=== PATIENT | female | born 1945 | race Caucasian/White ===

== ENCOUNTER 2022-08-10 14:41 | Inpatient (IN) | payer OTHER ==
[~2022-08-10] VITALS: Ht 157.5 cm; Wt 54.0 kg
--- NOTE | 2022-08-10 14:54 | NUR ---
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 TO ER BED 8.
[2022-08-10] MEDS ORDERED: ONDANSETRON HCL/PF 4 MG/2 ML VIAL ONE (15:08)
[2022-08-10] MEDS ORDERED: methylPREDNISolone SOD SUCC 125 MG/2ML VIAL ONE (15:08)
[2022-08-10] MEDS ORDERED: IPRATROPIUM NEB FS 0.5 MG/2.5 ML AMPUL.NEB ONE (15:17)
[2022-08-10] MEDS ORDERED: ALBUTEROL FS 2.5 MG/3 ML VIAL.NEB ONE (15:17)
--- NOTE | 2022-08-10 15:19 | NUR ---
TECH AT BEDSIDE FOR EKG
--- NOTE | 2022-08-10 15:20 | NUR ---
PHLEB AT BEDSIDE FOR BLOOD DRAW.
--- NOTE | 2022-08-10 15:20 | NUR ---
RT CALLED FOR BREATHING TX; CURRENTLY AT BEDSIDE.
[2022-08-10] MEDS ORDERED: ALBUTEROL FS 2.5 MG/3 ML VIAL.NEB NEB ONE (15:30)
[2022-08-10] MEDS ORDERED: ONDANSETRON HCL/PF 4 MG/2 ML VIAL IVP ONE (15:30)
[2022-08-10] MEDS ORDERED: methylPREDNISolone SOD SUCC 125 MG/2ML VIAL IV ONE (15:30)
[2022-08-10] MEDS ORDERED: IPRATROPIUM NEB FS 0.5 MG/2.5 ML AMPUL.NEB NEB ONE (15:30)
[2022-08-10 15:40] LABS: BASOPHILS # (AUTO) 0.1 K/uL (0.0-0.2); BASOPHILS % (AUTO) 0.6 % (0.0-2.0); EOSINOPHILS % (AUTO) 1.5 % (0.0-6.0); HEMATOCRIT 38 % (33-45); HEMOGLOBIN 12.6 g/dL (11.5-14.8); LYMPHOCYTES # (AUTO) 1.7 K/uL (0.8-4.8); LYMPHOCYTES % (AUTO) 12.9 % (20.0-44.0); MEAN CORPUSCULAR HGB CONC 33 g/dl (31.0-36.0); MEAN CORPUSCULAR VOLUME 95 fL (82-100); MONOCYTES # (AUTO) 0.9 K/uL (0.1-1.30); MONOCYTES % (AUTO) 7.4 % (2.0-12.0); NEUTROPHILS # (AUTO) 9.9 K/uL (1.8-8.9); NEUTROPHILS % (AUTO) 77.6 % (43.0-81.0); PLATELET COUNT (AUTO) 319 K/uL (150-450); RED BLOOD CELL COUNT(AUTO) 4.05 MIL/uL (4.0-5.2); WHITE BLOOD COUNT (AUTO) 12.8 K/uL (4.3-11.0)
[2022-08-10 15:58] LABS: CALCIUM, SERUM 9.2 mg/dL (8.5-10.1); CARBON DIOXIDE 33 mmol/L (21-32); CHLORIDE 96 mmol/L (98-107); CREATININE 0.8 mg/dL (0.6-1.3); GLUCOSE 139 mg/dL (74-106); POTASSIUM 3.8 mmol/L (3.5-5.1); SODIUM SERUM 132 mmol/L (136-145); UREA NITROGEN, BLOOD 15 mg/dL (7-18)
[2022-08-10 16:11] LABS: ALANINE AMINOTRANSFERASE 8 U/L (12-78); ALBUMIN 2.9 g/dL (3.4-5.0); ALKALINE PHOSPHATASE 102 U/L (46-116); ASPARTATE AMINOTRANSFERASE 17 U/L (15-37); BILIRUBIN,DIRECT 0.1 mg/dL (0.0-0.2); BILIRUBIN,TOTAL 0.3 mg/dL (0.2-1.0); TOTAL PROTEIN, SERUM 7.3 g/dL (6.4-8.2)
--- NOTE | 2022-08-10 16:20 | NUR ---
COVID SWAB COLLECTED AND SENT TO LAB
[2022-08-10] MEDS ORDERED: LEVO75TA PO (16:23)
[2022-08-10] MEDS ORDERED: PROP40TA7 PO (16:23)
[2022-08-10] MEDS ORDERED: ALBU18HF2 IH (16:23)
[2022-08-10] MEDS ORDERED: APIX5TAB PO (16:23)
[2022-08-10] MEDS ORDERED: LIOT25TA7 PO ×2 (16:23)
[2022-08-10] MEDS ORDERED: FURO40TA5 PO (16:23)
[2022-08-10] MEDS ORDERED: HYDR-4077 PO (17:12)
[2022-08-10] MEDS ORDERED: [UNRECOGNIZED DRUG - CODE] IM (17:12)
[2022-08-10] MEDS ORDERED: CHOL100043 PO (17:13)
[2022-08-10] MEDS ORDERED: ASCO-495 PO (17:13)
[2022-08-10] MEDS ORDERED: hydrALAZINE HCL 50 MG TABLET PO PRN (17:30)
[2022-08-10] MEDS ORDERED: Z GUARD REMEDY 4 OZ OINT TP PRN (18:00)
[2022-08-10] MEDS ORDERED: LORAZEPAM 1 MG TABLET PO PRN (18:00)
[2022-08-10] MEDS ORDERED: IV NS 0.9% 1,000 ML IV PRN (18:00)
[2022-08-10] MEDS ORDERED: ACETAMINOPHEN 325 MG TABLET PO PRN (18:00)
[2022-08-10] MEDS ORDERED: MAG HYDROX/AL HYDROX/SIMETH 30 ML UDC PO PRN (18:00)
[2022-08-10] MEDS ORDERED: ONDANSETRON HCL/PF 4 MG/2 ML VIAL IVP PRN (18:00)
[2022-08-10] MEDS ORDERED: MAGNESIUM HYDROXIDE 30 ML UDC PO PRN (18:00)
[2022-08-10] MEDS ORDERED: ALBUTEROL FS 2.5 MG/0.5 ML VIAL.NEB HHN PRN (18:30)
--- NOTE | 2022-08-10 19:22 | NUR ---
US TECH AT BEDSIDE
--- NOTE | 2022-08-10 19:36 | NUR ---
TELE 304-2
--- NOTE | 2022-08-10 19:55 | NUR ---
REPORT GIVEN TO GUILLERMO
--- NOTE | 2022-08-10 20:25 | NUR ---
RN ADMITTING NOTE PATIENT RECEIVED FROM JUDI PINK RN. PATIENT IS AMBULATORY WITH STEADY GATE. A/O X 4, ABLE TO MAKE NEEDS KNOWN. PATIENT RECEIVED ON 2LPM VIA NC, TOLERATING WELL. COARSE LUNG SOUNDS AND WHEEZING HEAR ON ANTERIOR AND POSTERIOR LUNG LOBES UPON AUSCULTATION. PATIENT HAS A L HAND 20 G PATENT AND INTACT, FLUSHING WELL. PATIENT DOES NOT REPORT ANY PAIN OR DISCOMFORT. ALL BELONGINGS INVENTORIED, SKIN ASSESSED. PATIENT WISHES TO KEEP HER OWN CLOTHES ON. TELE MONITOR READS SR 78 BPM WITH PVC AND PAC. PATIENT NOT VACCINATED WITH COVID, FLU, OR PNEUMONIA BY CHOICE. SAFETY MEASURES IN PLACE: BED LOCKED AND IN LOWEST POSITION, CALL LIGHT WITHIN REACH, SIDE RAILS UP. WILL MONITOR PATIENT CLOSELY.
--- NOTE | 2022-08-10 20:27 | NUR ---
PT TRANSPORTED TO ROOM 304 ON CARDIAC PER ACLS IN STABLE CONDITION
[2022-08-10 20:30] VITALS: BP 151/43
[2022-08-10] MEDS: LIOTHYRONINE SODIUM (25 MCG) 25 MCG TABLET PO SCH ×2 (21:00→21:54)
--- NOTE | 2022-08-10 21:55 | NUR ---
PATIENT REFUSED CYTOMEL STATES THAT IT IS TOO LATE TO TAKE THE MED AND SHE WILL TAKE IT TOMORROW. PATIENT VERBALIZED THAT SHE WOULD LIKE TO TAKE HER BETA ANDERS (PROPANOLOL) AND THE ELIQUIS SINCE SHE DID NOT TAKE THEM THIS AFTERNOON. NOTIFIED MD. AWAITING FOR RESPONSE.
[2022-08-10] MEDS ORDERED: APIXABAN 5 MG TABLET PO ONE (23:00)
[2022-08-10] MEDS ORDERED: PROPRANOLOL HCL 40 MG TABLET PO ONE (23:00)
[2022-08-10 23:20] VITALS: BP_SYST 132; BP_SYST 141; BP_SYST 144; BP_DIAS 58; BP_DIAS 59; BP_DIAS 61
--- NOTE | 2022-08-10 23:30 | NUR ---
ORTHOSTATIC BP COMPLETED. DOCUMENTED ON VITAL SIGN LONG FORM.
[2022-08-11] VITALS: BP 144/59
--- NOTE | 2022-08-11 00:30 | NUR ---
PATIENT REQUESTED ATIVAN TO HELP HER SLEEP AND REDUCE ANXIETY. ATIVAN 0.5 MG TAB PO ADMINISTERED TO PATIENT. WASTED 1/2 TAB WITH MARIANELA RN.
[2022-08-11 06:01] LABS: BASOPHILS % (AUTO) 0.2 % (0.0-2.0); HEMATOCRIT 34 % (33-45); HEMOGLOBIN 11.5 g/dL (11.5-14.8); LYMPHOCYTES # (AUTO) 0.6 K/uL (0.8-4.8); LYMPHOCYTES % (AUTO) 4.7 % (20.0-44.0); MEAN CORPUSCULAR HGB CONC 33 g/dl (31.0-36.0); MEAN CORPUSCULAR VOLUME 94 fL (82-100); MONOCYTES # (AUTO) 0.1 K/uL (0.1-1.30); MONOCYTES % (AUTO) 0.9 % (2.0-12.0); NEUTROPHILS # (AUTO) 11.8 K/uL (1.8-8.9); NEUTROPHILS % (AUTO) 94.2 % (43.0-81.0); PLATELET COUNT (AUTO) 296 K/uL (150-450); RED BLOOD CELL COUNT(AUTO) 3.65 MIL/uL (4.0-5.2); WHITE BLOOD COUNT (AUTO) 12.5 K/uL (4.3-11.0)
[2022-08-11 06:45] LABS: CHOLESTEROL 189 mg/dL (<200); HDL CHOLESTEROL 66 mg/dL (40-60); LDL 116 mg/dL (0-99); THYROID STIMULATING HORMONE < 0.007 uIU/mL (0.358-3.74); TRIGLYCERIDES 80 mg/dL (30-150)
--- NOTE | 2022-08-11 06:58 | NUR ---
RN CLOSING NOTE PATIENT IN BED, AWAKE. PATIENT IS ABLE TO MAKE NEEDS KNOWN. PATIENT STILL ON 2 LPM VIA NC AT 97% O2 SAT. PATIENT DOES NOT PRESENT WITH SOB OR RESPIRATORY DISTRESS AT THIS TIME. TELE MONITOR READS 69 BPM WITH PVC AND BBB. DENIES ANY PAIN OR DISCOMFORT. SAFETY MEASURES MAINTAINED. ALL NEEDS MET AND ATTENDED. ALL ORDERS CARRIED OUT. WILL ENDORSE TO DAY SHIFT NURSE FOR ROMA.
--- NOTE | 2022-08-11 07:25 | NUR ---
RN OPENING NOTES PATIENT RECEIVED IN AWAKE . A/O X 4, ABLE TO MAKE NEEDS KNOWN. ON 2LPM VIA NC, TOLERATING . PATIENT HAS A L HAND 20 G RUNNING WITH NS @75 ML /HR . NO C/O OF ANY PAIN OR DISCOMFORT.. TELE MONITOR READS SR 78 WITH BBB PVC @69 . SAFETY MEASURES IN PLACE: BED LOCKED AND IN LOWEST POSITION, CALL LIGHT WITHIN REACH, SIDE RAILS UP. WILL CONTINUE TO MONITOR .
[2022-08-11] MEDS ORDERED: PANTOPRAZOLE 40 MG TABLET.DR PO SCH (07:30)
[2022-08-11] MEDS ORDERED: LEVOTHYROXINE SODIUM 75 MCG TABLET PO SCH (07:30)
[2022-08-11 07:47] LABS: CARBON DIOXIDE 26 mmol/L (21-32); CHLORIDE 100 mmol/L (98-107); CREATININE 0.7 mg/dL (0.6-1.3); GLUCOSE 122 mg/dL (74-106); PHOSPHORUS 3.3 mg/dL (2.5-4.9); POTASSIUM 4.2 mmol/L (3.5-5.1); SODIUM SERUM 134 mmol/L (136-145)
[2022-08-11 08:00] VITALS: BP 140/54
[2022-08-11 08:49] LABS: CALCIUM, SERUM 8.7 mg/dL (8.5-10.1); MAGNESIUM 1.4 mg/dL (1.8-2.4); UREA NITROGEN, BLOOD 15 mg/dL (7-18)
[2022-08-11] MEDS ORDERED: PROPRANOLOL HCL 40 MG TABLET PO SCH (09:00)
[2022-08-11] MEDS ORDERED: APIXABAN 5 MG TABLET PO SCH (09:00)
[2022-08-11] MEDS ORDERED: CHOLECALCIFEROL 1,000 UNIT TABLET (VIT D3) PO SCH (09:00)
[2022-08-11] MEDS ORDERED: LIOTHYRONINE SODIUM (25 MCG) 25 MCG TABLET PO SCH (09:00)
[2022-08-11] MEDS ORDERED: ASCORBIC ACID 500 MG TABLET PO SCH (09:00)
[2022-08-11] MEDS ORDERED: Magnesium 1GM/D5W 100ML PREMIX 100 ML IV SCH (10:00)
[2022-08-11] MEDS: Magnesium 1GM/D5W 100ML PREMIX 100 ML IV SCH ×2 (11:24→13:28)
[2022-08-11 12:00] VITALS: BP 130/60
[2022-08-11] MEDS ORDERED: IPRATROPIUM NEB FS 0.5 MG/2.5 ML AMPUL.NEB NEB ONE (13:00)
[2022-08-11] MEDS ORDERED: ALBUTEROL FS 2.5 MG/3 ML VIAL.NEB NEB ONE (13:00)
[2022-08-11] MEDS ORDERED: GUAI600T53 PO (13:13)
[2022-08-11] MEDS ORDERED: ALBU2.5V13 IH (13:13)
[2022-08-11] MEDS ORDERED: LORA10TA68 PO (13:13)
[2022-08-11] MEDS ORDERED: LORA-259 PO (13:13)
--- NOTE | 2022-08-11 16:00 | NUR ---
MANAGER FUND NOTES PATIENT IS WITH ORDER FOR DISCHARGE AND CLEARED BY MD , DISCHARGE PAPERS PREPARED , ALL DUE MEDS ORDERED GIVEN , DISCHARGE INSTRUCTIONS PROVIDED REGARDING MEDICATIONS , FOLLOW UP WITH PCP AND SAFETY PRECAUTIONS AND WHEN TO CALL 911 WHEN IN CASE OF EMERGENCY , ALL BELONGINGS WERE ACCOUNTED FOR AND FORM WAS SIGNED , IV ACCESS WAS REMOVED , AND PROFESSOR OF NURSING WAS REMOVED , NO SOB OR DISTRESS NOTED , NO C/O OF PAIN AND DISCOMFORT NOTED , ASSISTED TO THE LOBBY AND FAMILY PROVIDED TRANSPORTATION VIA PRIVATE CAR .
[2022-08-15] MEDS ORDERED: ESTRADIOL VALERATE IM SCH (09:00)
== END 2022-08-11 16:00 | disposition home or self-care (01) | DRG 640 ==
LOC: ER 14:44 → TELE 19:36
PROVIDERS: ADMIT Nurse Practitioner Acute Care; ATTEND Nurse Practitioner Acute Care
DX: E86.0 Dehydration (principal); I21.A1 Myocardial infarction type 2; I48.20 Chronic atrial fibrillation, unspecified; E87.1 Hypo-osmolality and hyponatremia; D64.9 Anemia, unspecified; E83.42 Hypomagnesemia; I10 Essential (primary) hypertension; E86.1 Hypovolemia; Z90.710 Acquired absence of both cervix and uterus; E03.9 Hypothyroidism, unspecified; I34.0 Nonrheumatic mitral (valve) insufficiency; Z79.01 Long term (current) use of anticoagulants; I95.9 Hypotension, unspecified; F17.210 Nicotine dependence, cigarettes, uncomplicated; Z71.6 Tobacco abuse counseling
CPT/HCPCS: 36415; 71045-TC; 80048-TC; 80061-TC; 80076-TC; 83735-TC; 83880; 84100-TC; 84439-TC; 84443-TC; 84484-TC; 85025-TC; 87081-TC; 93307-TC; 94799-TC; C9803; G0378; J2405; J2930; J3475; J7030